=== PATIENT | female | born 1965 | race Caucasian/White ===

== ENCOUNTER 2021-11-11 06:38 | Day surgery (SDC) | payer OTHER ==
[2021-11-05 15:01] LABS: BASOPHILS % (AUTO) 0.5 % (0-1); EOSINOPHILS # (AUTO) 0.1 X10'3 (0-0.9); EOSINOPHILS % (AUTO) 0.7 % (0-6); LYMPHOCYTES # (AUTO) 2.4 X10'3 (1.1-4.8); LYMPHOCYTES % (AUTO) 31.2 % (21-51); MEAN CORPUSCULAR HEMOGLOBIN 32.3 PG (27.0-31.0); MEAN CORPUSCULAR HGB CONC 35.3 g/dL (33.0-36.5); MEAN CORPUSCULAR VOLUME 91.6 FL (78-98); MEAN PLATELET VOLUME 7.9 FL (7.4-10.4); MONOCYTES # (AUTO) 0.5 X10'3 (0-0.9); MONOCYTES % (AUTO) 6.8 % (2-12); NEUTROPHILS # (AUTO) 4.7 X10'3 (1.8-7.7); NEUTROPHILS % (AUTO) 60.8 % (42-75); PRE OP HEMATOCRIT 39.1 % (35.0-45.0); PRE OP HEMOGLOBIN 13.8 g/dL (12.0-16.0); PRE OP PLATELET COUNT 295 X10'3 (140-440); RED BLOOD COUNT 4.27 X10'6 (4.20-5.60); RED CELL DISTRIBUTION WIDTH 12.4 % (11.5-14.5)
[2021-11-05 15:10] LABS: ALBUMIN/GLOBULIN RATIO 1.2 (1.1-1.5); ALKALINE PHOSPHATASE 66 IU/L (46-116); BLOOD UREA NITROGEN 18 MG/DL (7-18); BUN/CREATININE RATIO 25.7 (6.6-38.0); CALCIUM 8.9 MG/DL (8.5-10.1); CHLORIDE 99 MMOL/L (99-107); PRE OP ALT 20 U/L (30-65); PRE OP ANION GAP 12 (8-16); PRE OP AST 16 U/L (10-37); PRE OP BILIRUB, TOTAL 0.5 MG/DL (0.0-1.0); PRE OP GLUCOSE 97 MG/DL (70-104); PRE OP POTASSIUM 3.8 MMOL/L (3.4-5.1); PRE OP SODIUM 136 MMOL/L (135-145); TOTAL PROTEIN 7.3 G/DL (6.4-8.2); eGFR 87 ML/MIN
[~2021-11-11] VITALS: Ht 175.3 cm; Wt 95.3 kg
[2021-11-11] VITALS (15 sets, daily range): BP systolic 96–127; BP diastolic 46–80
[~2021-11-11 06:38] MED LIST: NO HOME MEDS; acetaminophen 325mg tablet PO ONE; cefazolin/dext.iso 2gm/100ml 100 ML IV ONE; celeCOXIB 100mg capsule PO ONE; famotidine 20mg tablet PO ONE; gabapentin 300mg capsule PO ONE; metoclopramide 5 mg/ml inj IV ONE; oxyCODONE SR 10mg (sust. release) tab -2 tabs (20mg) PO ONE; tranexamic acid inj. 1,000 MG in 0.7% saline 100 ML PMX IV ONE; vancomycin 1,500 MG in NS 300ml IV soln IV ONE
[2021-11-11] MEDS ORDERED: HYDROmorphone 1 mg/ml syringe IV PRN (07:00)
[2021-11-11] MEDS ORDERED: naloxone 0.4 mg/ml inj IV PRN (07:00)
[2021-11-11] MEDS ORDERED: HYDROmorphone inj. 0.5 MG/0.5 ML DISP.SYRIN IV PRN (07:00)
[2021-11-11] MEDS ORDERED: ondansetron/PF 4mg/2ml inj IV PRN ×2 (07:00→08:30)
[2021-11-11] MEDS ORDERED: diphenhydrAMINE 25mg capsule PO PRN ×2 (07:00)
[2021-11-11] MEDS ORDERED: acetaminophen 325mg tablet PO PRN (07:00)
[2021-11-11] MEDS ORDERED: bisacodyl 10mg suppository rectal RC PRN (07:00)
[2021-11-11] MEDS ORDERED: magnesium hydroxide 30ml (MOM) UD suspension PO PRN (07:00)
[2021-11-11] MEDS ORDERED: oxyCODONE/APAP 10/325mg tablet PO PRN ×2 (07:00)
[2021-11-11] MEDS: ringers solution, lacted 1,000 ML IV SCH ×4 (07:50→15:02)
[2021-11-11] MEDS ORDERED: ascorbic acid 500mg tablet PO SCH (08:00)
[2021-11-11] MEDS ORDERED: multivitamins, therapeutics tablet PO SCH (08:00)
[2021-11-11] MEDS: gabapentin 300mg capsule PO SCH ×2 (08:00→13:00)
[2021-11-11] MEDS ORDERED: aspirin 325mg tablet PO SCH (08:30)
[2021-11-11] MEDS ORDERED: proCHLORperazine 10 MG/2 ml inj IV PRN (08:30)
[2021-11-11] MEDS ORDERED: ringers solution, lacted 1,000 ML IV SCH (08:30)
[2021-11-11] MEDS ORDERED: meperidine/PF 25mg/ml syringe IV PRN ×3 (08:30)
--- NOTE | 2021-11-11 08:30 | NUR ---
PT HAD +CSM TO BILAT LOWER EXTREMITIES, PT WAS ABLE TO COMPLETE ALL SHOWERS AND OINTMENT ORDERED, WAS GIVEN DVD, BUT DID NOT WATCH IT-READ BOOKLET INSTEAD
[2021-11-11] MEDS ORDERED: epiNEPHrine 1 mg/ml inj ONE (09:21)
[2021-11-11] MEDS ORDERED: ROPIVAcaine 0.5% (5mg/ml) 30ml vial ONE ×2 (09:21→10:04)
[2021-11-11] MEDS ORDERED: vancomycin 1,000mg inj ONE (09:21)
[2021-11-11] MEDS ORDERED: ketorolac trometh. 30mg/ml inj. ONE (09:21)
[2021-11-11] MEDS ORDERED: cloNIDine hcl/PF 100mcg/ml inj ONE (09:21)
[2021-11-11] MEDS ORDERED: MIDAZolam 5mg/ml 2ml vial ONE (09:49)
[2021-11-11] MEDS ORDERED: fentaNYL/PF 50MCG/1 ML 2ML syringe ONE (09:50)
[2021-11-11] MEDS ORDERED: propofol inj 20 ML IV ONE (10:47)
[2021-11-11] MEDS ORDERED: ROPIVAcaine 0.2% (10 MG/5 ML) BOLUS INJECTION ADDCANAL PRN (11:05)
[2021-11-11] MEDS ORDERED: ROPIVAcaine 0.2%/PF PUMP/bolus 545 ML ADDCANAL SCH (11:05)
[2021-11-11] MEDS ORDERED: ondansetron/PF 4mg/2ml inj ONE (11:52)
--- NOTE | 2021-11-11 11:58 | NUR ---
Received from OR via SURGICAL BED , accompanied by Anesthesiologist DR ACHARYA and report given by Anesthesiolgist. PT ALERT AND ORIENTED. KNEE WRAP TO LEFT KNEE CDI. COLD PACK IN PLACE. MAX DRSG IN TACT. SENSATION NOTED TO BE AT WAIST LEVEL. PT IS ABLE TO WIGGLE TOES. STRONG PALPABLE PEDAL PULSE TO LEFT FOOT. IV PATENT, INFUSING LR. 1 BELONGING BAG W/ PT.
--- NOTE | 2021-11-11 12:52 | NUR ---
received report, patient still in recovery for approx 30 more minutes.
--- NOTE | 2021-11-11 13:28 | NUR ---
PT REPORT GIVEN TO REJI ZAMORA. PT CONTINUES TO DENY PAIN AND NAUSEA. DRSG TO LEFT KNEE REMAINS CDI. SENSATION NOW AT APPROX KNEE LEVEL. PT STILL ABLE TO WIGGLE TOES BILATERALLY. TOLERATING WATER AND STATES READINESS FOR TRANSFER TO ORTHO FLOOR. 1 BAG TO 4012 A. PT ORIENTED TO ROOM AND CALL LIGHT. PT SET UP ON POST OP VITALS PER PROTOCOL. BED LOW, LOCKED. RAILS UP X 2. CALL LIGHT IN REACH. SCD'S ON. GLASSES ON PT. PHONE IN PT HAND UPON X CESAR TO FLOOR. PT SPOUSE ALSO NOTIFIED OF X CESAR TO FLOOR.
[2021-11-11] MEDS ORDERED: tranexamic acid inj. 950 MG in normal saline 100ml IV soln 90.5 ML IV ONE (14:00)
--- NOTE | 2021-11-11 14:10 | NUR ---
returned from lunch break, patient had arrived, Knee wrap with cold pack in place, Iv fluids runing, ON Q ball on and functioning. Post op vital signs going. Pt stated she wants to go home tonight, Per recovery nurse during report Surgeon aware, no orders to discharge. Explained to patient Dr Medeiros did not place discharge orders at this time
[2021-11-11] MEDS: potassium cl 20mEq in 1/2 NS 1,000 ML IV SCH ×2 (14:58→15:03)
[2021-11-11] MEDS ORDERED: cefazolin/dext.iso 2gm/100ml 100 ML IV SCH (16:00)
--- NOTE | 2021-11-11 16:13 | NUR ---
Dayami ZAMORA stated Dr Medeiros called and requested physical therapy eval to discharge patient. Dayami ZAMORA paged physical therapy, physical therapy called and stated they are unable to get to patient eval today. I will notify Dr Medeiros
--- NOTE | 2021-11-11 16:27 | NUR ---
Dr Medeiros stated he is ok with nursing ambulating patient and assessing patient readiness to go home tonight. Will amubulate and report to when done
--- NOTE | 2021-11-11 17:51 | NUR ---
discharge orders given, printout with computer access code for PT exercises given, PIV removed, wheelchair to lobby for ride home
[2021-11-11] MEDS ORDERED: sennosides 8.6mg tablet PO SCH (21:00)
[2021-11-12] MEDS ORDERED: celeCOXIB 100mg capsule PO SCH (20:00)
== END 2021-11-11 17:51 | disposition home or self-care (01) ==
LOC: PRE-OP 06:38 → ORTHO 4S 07:04 → PRE-OP 17:51
PROVIDERS: ATTEND Orthopaedic Surgery
DX: M17.12 Unilateral primary osteoarthritis, left knee (principal); M21.162 Varus deformity, not elsewhere classified, left knee; G89.18 Other acute postprocedural pain; E66.9 Obesity, unspecified; Z68.31 Body mass index [BMI] 31.0-31.9, adult; Z20.822 Contact with and (suspected) exposure to COVID-19; Z79.899 Other long term (current) drug therapy; Z87.891 Personal history of nicotine dependence; Z72.89 Other problems related to lifestyle; Z98.890 Other specified postprocedural states; Z88.5 Allergy status to narcotic agent
CPT/HCPCS: 27447; 36415; 64448; 64999; 71046; 73560; 76942; 80053; 82948; 85025; 86885; 86900; 86901; 87081; C1713; C1776; J0171; J0690; J0735; J1170; J1885; J2250; J2405; J2704; J2765; J2795; J3010; J3370; J3480; J3490; J7030; J7040; J7120; U0003; U0005; Z7506; Z7508; Z7512; A4215; A6449; A7000; G0378; J7060

== ENCOUNTER 2022-01-03 21:54 | Emergency (ER) | payer OTHER ==
[~2022-01-03] VITALS: Ht 172.7 cm; Wt 97.7 kg
[~2022-01-03 21:54] MED LIST changes: -acetaminophen 325mg tablet PO ONE; -cefazolin/dext.iso 2gm/100ml 100 ML IV ONE; -celeCOXIB 100mg capsule PO ONE; -famotidine 20mg tablet PO ONE; -gabapentin 300mg capsule PO ONE; -metoclopramide 5 mg/ml inj IV ONE; -oxyCODONE SR 10mg (sust. release) tab -2 tabs (20mg) PO ONE; -tranexamic acid inj. 1,000 MG in 0.7% saline 100 ML PMX IV ONE; -vancomycin 1,500 MG in NS 300ml IV soln IV ONE
[2022-01-03] MEDS ORDERED: ondansetron 4mg rapidly disintigrating tab PO ONE (22:20)
[2022-01-03 22:44] LABS: BASOPHILS % (AUTO) 0.2 % (0-1); EOSINOPHILS % (AUTO) 0.1 % (0-6); HEMATOCRIT 39.1 % (35.0-45.0); HEMOGLOBIN 13.8 g/dl (12.0-16.0); LYMPHOCYTES # (AUTO) 2.5 X10'3 (1.1-4.8); LYMPHOCYTES % (AUTO) 25.2 % (21-51); MEAN CORPUSCULAR HEMOGLOBIN 31.7 PG (27.0-31.0); MEAN CORPUSCULAR HGB CONC 35.3 g/dL (33.0-36.5); MEAN CORPUSCULAR VOLUME 89.8 FL (78-98); MEAN PLATELET VOLUME 7.3 FL (7.4-10.4); MONOCYTES # (AUTO) 0.6 X10'3 (0-0.9); NEUTROPHILS # (AUTO) 6.8 X10'3 (1.8-7.7); NEUTROPHILS % (AUTO) 68.5 % (42-75); PLATELET COUNT 339 X10'3 (140-440); RED BLOOD COUNT 4.36 X10'6 (4.20-5.60); RED CELL DISTRIBUTION WIDTH 12.9 % (11.5-14.5)
[2022-01-03 22:59] LABS: ALANINE AMINOTRANSFERASE 21 U/L (12-78); ALBUMIN/GLOBULIN RATIO 1.3 (1.1-1.5); ALKALINE PHOSPHATASE 72 IU/L (46-116); ANION GAP 16 (8-16); ASPARTATE AMINO TRANSFERASE 20 U/L (10-37); BLOOD UREA NITROGEN 8 MG/DL (7-18); BUN/CREATININE RATIO 9.8 (6.6-38.0); CALCIUM 8.5 MG/DL (8.5-10.1); CHLORIDE 91 MMOL/L (99-107); CREATININE 0.82 MG/DL (0.40-0.90); GLUCOSE 119 MG/DL (70-104); POTASSIUM 3.8 MMOL/L (3.5-5.1); SODIUM 126 MMOL/L (135-145); TOTAL CARBON DIOXIDE 18.7 MMOL/L (24-32); TOTAL PROTEIN 7.1 G/DL (6.4-8.2); eGFR 73 ML/MIN
[2022-01-03] MEDS ORDERED: diphenhydrAMINE 50 mg/ml inj IV ONE (23:55)
[2022-01-03] MEDS ORDERED: normal saline 1000ML IV soln IVB ONE ×2 (23:55)
[2022-01-03] MEDS ORDERED: metoclopramide 5 mg/ml inj IV ONE (23:55)
[2022-01-04 00:57] VITALS: BP 142/89
== END 2022-01-04 00:59 | disposition home or self-care (01) ==
LOC: ER 21:55
DX: R11.2 Nausea with vomiting, unspecified (principal); R19.7 Diarrhea, unspecified; Z98.890 Other specified postprocedural states; Z88.5 Allergy status to narcotic agent
CPT/HCPCS: 36415; 80053; 85025; 96361; 96374; 96375; 99284; J1200; J2765; J7030

== ENCOUNTER 2024-04-10 23:41 | Observation (INO) | payer OTHER ==
[~2024-04-10] VITALS: Ht 175.3 cm; Wt 103.6 kg
[2024-04-11 00:22] LABS: BASOPHILS % (AUTO) 0.4 % (0-1); EOSINOPHILS % (AUTO) 0.6 % (0-6); HEMATOCRIT 42.1 % (35.0-45.0); HEMOGLOBIN 14.3 g/dl (12.0-16.0); LYMPHOCYTES # (AUTO) 3.4 X10'3 (1.1-4.8); LYMPHOCYTES % (AUTO) 42.3 % (21-51); MEAN CORPUSCULAR HEMOGLOBIN 32.4 PG (27.0-31.0); MEAN CORPUSCULAR VOLUME 95.2 FL (78-98); MEAN PLATELET VOLUME 7.8 FL (7.4-10.4); MONOCYTES # (AUTO) 0.5 X10'3 (0-0.9); MONOCYTES % (AUTO) 6.1 % (2-12); NEUTROPHILS % (AUTO) 50.6 % (42-75); PLATELET COUNT 322 X10'3 (140-440); RED BLOOD COUNT 4.42 X10'6 (4.20-5.60); RED CELL DISTRIBUTION WIDTH 12.8 % (11.5-14.5)
[2024-04-11 00:27] LABS: ALBUMIN 3.7 G/DL (3.4-5.0); ANION GAP 8 (8-16); BLOOD UREA NITROGEN 15 MG/DL (7-18); BUN/CREATININE RATIO 16.9 (10.0-20.0); CALCIUM 8.6 MG/DL (8.5-10.1); CHLORIDE 104 MMOL/L (99-107); CREATININE 0.89 MG/DL (0.40-0.90); GLUCOSE 126 MG/DL (70-104); POTASSIUM 3.7 MMOL/L (3.5-5.1); SODIUM 137 MMOL/L (135-145); TOTAL CARBON DIOXIDE 25.3 MMOL/L (24-32); eCRCL 74 ML/MIN; eGFR 66 ML/MIN
[2024-04-11 00:48] LABS: APTT 26 SECONDS (22-32); PROTHROMBIN TIME 9.7 SECONDS (9.0-12.0)
[2024-04-11 00:50] LABS: INR 0.9 INR
[2024-04-11] MEDS ORDERED: clopidogrel 300mg tablet PO ONE (01:05)
[2024-04-11] MEDS: aspirin 325mg tablet PO ONE (01:19)
[2024-04-11] MEDS: clopidogrel 75mg tablet PO ONE (01:21)
[2024-04-11 01:46] LABS: BILIRUBIN,URINE NEGATIVE (Neg); CLARITY,URINE CLEAR (Clear); COLOR,URINE STRAW (Yellow); GLUCOSE, URINE NEGATIVE (Neg); KETONES,URINE NEGATIVE (Neg); LEUKOCYTE ESTERASE ,URINE NEGATIVE (Neg); NITRITES, URINE NEGATIVE (Neg); OCCULT BLOOD,URINE NEGATIVE (Neg); PROTEIN,URINE NEGATIVE (Neg); UROBILINOGEN,URINE 0.2 E.U/dL (0.2-1.0)
[2024-04-11 01:47] LABS: UA COLLECTION TYPE NON-SPECIFIED
[2024-04-11] MEDS ORDERED: magnesium sulf-water 4G/100mL 100 ML IV PRN (02:05)
[2024-04-11] MEDS ORDERED: dextrose 50%-water 50ml dispensing syringe IV PRN (02:05)
[2024-04-11] MEDS ORDERED: magnesium sulf-water 2g/50mL 50 ML IV PRN (02:05)
[2024-04-11] MEDS ORDERED: potassium Cl 20 mEq SR tablet PO PRN ×2 (02:05)
[2024-04-11] MEDS ORDERED: potassium Cl 40MEQ/1/2NS 520ml 520 ML IV PRN (02:05)
[2024-04-11] MEDS ORDERED: LORazepam 2 mg/ml vial IV PRN (02:05)
[2024-04-11] MEDS ORDERED: haloperidol 5mg tablet PO PRN (02:05)
[2024-04-11] MEDS ORDERED: magnesium Cl slow-release 64mg tablet PO PRN (02:05)
[2024-04-11] MEDS ORDERED: mag hydrox/Alum hydrox/simeth 30ml oral suspension PO PRN (02:05)
[2024-04-11] MEDS ORDERED: LORazepam 1 MG tablet PO PRN (02:05)
[2024-04-11] MEDS ORDERED: magnesium hydroxide 30ml (MOM) UD suspension PO PRN (02:05)
[2024-04-11] MEDS ORDERED: haloperidol lactate 5mg/ml inj IM PRN (02:05)
[2024-04-11] MEDS ORDERED: acetaminophen 325mg tablet PO PRN (02:05)
[2024-04-11 02:23] LABS: HEMOGLOBIN A1C 5.2 % (4.5-6.2)
[2024-04-11 04:45] VITALS: BP 170/55; PULSE 72; RESP 16; TEMP 97.5; O2SAT 99
[2024-04-11 06:00] VITALS: BP 152/79; PULSE 66; RESP 12; TEMP 97.6; O2SAT 99
[2024-04-11 07:59] VITALS: BP 152/79; PULSE 66; RESP 12; TEMP 97.6; O2SAT 99
[2024-04-11] MEDS: K and/or MAG REPLACEMENT MC SCH (08:00)
[2024-04-11] MEDS: thiamine 100mg/ml 2ml inj. IV SCH (08:08)
[2024-04-11] MEDS: aspirin 81mg tab.chew PO SCH (08:08)
[2024-04-11] MEDS: atorvastatin 20mg tablet PO SCH (08:23)
[2024-04-11] MEDS: folic acid 1mg/0.2ml inj IV SCH (08:24)
[2024-04-11] MEDS: enoxaparin 40mg/0.4ml syringe SQ SCH (08:33)
[2024-04-11 10:00] VITALS: BP 151/78; PULSE 76; RESP 14; TEMP 97.4; O2SAT 100
[2024-04-11] MEDS ORDERED: ASPI81TA52 PO (11:32)
[2024-04-11 12:00] VITALS: BP 151/78; PULSE 76; RESP 14; TEMP 97.4; O2SAT 100
[2024-04-11 12:00] LABS: CHOLESTEROL 183 MG/DL (0-200); HDL CHOLESTEROL 62 MG/DL (35-60); LDL CHOLESTEROL 95 MG/DL (50-100); TRIGLYCERIDES 116 MG/DL (20-135)
[2024-04-11 12:06] VITALS: BP_SYST 151; PULSE 76
[2024-04-11] MEDS: losartan 25mg tablet PO STA (12:06)
[2024-04-11] MEDS ORDERED: MECL-231 PO (14:58)
[2024-04-11] MEDS ORDERED: ATOR20TA66 PO (15:15)
[2024-04-15] MEDS ORDERED: thiamine 100mg tablet PO SCH (08:00)
[2024-04-15] MEDS ORDERED: folic acid 1mg tablet PO SCH (08:00)
== END 2024-04-11 15:34 | disposition home or self-care (01) ==
LOC: ER 23:42 → ED HOLD 04-11 02:05 → EDBEDREQ 04-11 04:01 → ORTHO 4S 04-11 04:38
PROVIDERS: ADMIT Internal Medicine Critical Care Medicine; ATTEND Nurse Practitioner Family
DX: G45.9 Transient cerebral ischemic attack, unspecified (principal); H93.11 Tinnitus, right ear; E78.5 Hyperlipidemia, unspecified; R47.1 Dysarthria and anarthria; R29.700 NIHSS score 0; F10.90 Alcohol use, unspecified, uncomplicated; Z79.899 Other long term (current) drug therapy
CPT/HCPCS: 36415; 70450; 71045; 80048; 80061; 81003; 82948; 83036; 85025; 85610; 85730; 87081; 92508; 92616; 93005; 93306; 96372; 96374; 96375; 96376; 99291; G0378; J1650; J3411; J3490